=== PATIENT | female | born 1970 | race Caucasian/White ===

== ENCOUNTER 2017-12-08 13:48 | Emergency (ER) | payer SELFPAY ==
[2017-12-08] MEDS ORDERED: ASPIRIN 325 MG TABLET PO ONE (14:27)
--- NOTE | 2017-12-08 14:38 | ER Document Report ---
ED Medical Screen (RME) - General Chief Complaint: Chest Pain Stated Complaint: CHEST PAIN Time Seen by Provider: 12/08/17 14:27 Mode of Arrival: Ambulatory Information source: Patient TRAVEL OUTSIDE OF THE [place] IN LAST 30 DAYS: No - HPI Patient complains to provider of: CP Onset: Other - pt states she has had intermittent SSCP for the past week. She has not taken ASA today - Related Data Allergies/Adverse Reactions: morphine [Morphine] Adverse Reaction (Mild, Verified 02/09/13 22:45) SEVERE HEADACHE Home Medications: Current Home Medications No Home Medications 12/08/17 [History] Past Medical History - Past Medical History Cardiac Medical History: Denies: Hx Heart Attack, Hx Hypertension Pulmonary Medical History: Denies: Hx Asthma Neurological Medical History: Denies: Hx Cerebrovascular Accident, Hx Seizures GI Medical History: Denies: Hx Hepatitis, Hx Hiatal Hernia, Hx Ulcer Musculoskeltal Medical History: Psychiatric Medical History: Reports: Hx Depression Infectious Medical History: Denies: Hx Hepatitis Past Surgical History: Reports: Hx Section, Hx Hysterectomy - 2006, Hx Orthopedic Surgery - Pins in the right foot. Denies: Hx Mastectomy, Hx Open Heart Surgery, Hx Pacemaker - Immunizations Hx Diphtheria, Pertussis, Tetanus Vaccination: No Physical Exam - Vital signs Vitals: Temp Pulse Resp BP Pulse Ox 98.1 F 93 18 131/84 H 100 12/08/17 14:11 12/08/17 14:11 12/08/17 14:11 12/08/17 14:11 12/08/17 14:11 Course - Vital Signs Vital signs: Temp Pulse Resp BP Pulse Ox 98.1 F 93 18 131/84 H 100 12/08/17 14:11 12/08/17 14:11 12/08/17 14:11 12/08/17 14:11 12/08/17 14:11
--- NOTE | 2017-12-08 15:15 | EKG REPORT ---
SEVERITY:- BORDERLINE ECG - SINUS RHYTHM BORDERLINE PROLONGED QT INTERVAL : Confirmed by: Roberto Vasquez MD 08-Dec-2017 15:14:38
[2017-12-08 15:21] LABS: ABSOLUTE LYMPHOCYTES (AUTO) 1.4 10^3/uL (0.5-4.7); ABSOLUTE MONOCYTES (AUTO) 0.5 10^3/uL (0.1-1.4); ABSOLUTE NEUT (AUTO) 3.3 10^3/uL (1.7-8.2); BASOPHILS % (AUTO) 0.7 % (0-2); EOSINOPHILS % (AUTO) 0.1 % (0-6); HEMATOCRIT 41.9 % (36.0-47.0); HEMOGLOBIN 14.5 g/dL (12.0-15.5); LYMPHOCYTES % (AUTO) 27.1 % (13-45); MEAN CORPUSCULAR HEMOGLOBIN 33.3 pg (27.0-33.4); MEAN CORPUSCULAR HGB CONC 34.6 g/dL (32.0-36.0); MEAN CORPUSCULAR VOLUME 96 fl (80-97); PLATELET COUNT 205 10^3/uL (150-450); RED BLOOD COUNT 4.36 10^6/uL (3.72-5.28); RED CELL DISTRIBUTION WIDTH 12.7 % (11.5-14.0); SEGMENTED NEUTROPHILS % (AUTO) 63.1 % (42-78); TOTAL CELLS COUNTED % (AUTO) 100 %; WHITE BLOOD COUNT 5.3 10^3/uL (4.0-10.5)
[2017-12-08 15:33] LABS: ALANINE AMINOTRANSFERASE 40 U/L (9-52); ALBUMIN 4.4 g/dL (3.5-5.0); ALKALINE PHOSPHATASE 74 U/L (38-126); ANION GAP 9 (5-19); ASPARTATE AMINO TRANSFERASE 39 U/L (14-36); BILIRUBIN,DIRECT 0.2 mg/dL (0.0-0.4); BILIRUBIN,TOTAL 0.5 mg/dL (0.2-1.3); BLOOD UREA NITROGEN 8 mg/dL (7-20); CALCIUM 9.3 mg/dL (8.4-10.2); CARBON DIOXIDE 26 mmol/L (22-30); CHLORIDE 105 mmol/L (98-107); CREATINE KINASE 46 U/L (30-135); GLUCOSE 100 mg/dL (75-110); POTASSIUM 4.6 mmol/L (3.6-5.0); SODIUM 139.8 mmol/L (137-145)
[2017-12-08 16:02] LABS: CREATINE KINASE MB 0.43 ng/mL (<4.55); TROPONIN I < 0.012 ng/mL
[2017-12-08] MEDS ORDERED: KETOROLAC TROMETHAMINE INJ/PF 30 MG/1 ML SDV IV ONE (16:49)
--- NOTE | 2017-12-08 17:17 | RADIOLOGY REPORT (SQ) ---
EXAM DESCRIPTION: CHEST PA/LAT COMPLETED DATE/TIME: 12/08/2017 4:57 pm REASON FOR STUDY: cp COMPARISON: None 2012 EXAM PARAMETERS: NUMBER OF VIEWS: two views TECHNIQUE: Digital Frontal and Lateral radiographic views of the chest acquired. RADIATION DOSE: NA LIMITATIONS: none FINDINGS: LUNGS AND PLEURA: No opacities, masses or pneumothorax. No pleural effusion. MEDIASTINUM AND HILAR STRUCTURES: No masses or contour abnormalities. HEART AND VASCULAR STRUCTURES: Heart normal size. No evidence for failure. BONES: No acute findings. HARDWARE: None in the chest. OTHER: No other significant finding. IMPRESSION: NO SIGNIFICANT RADIOGRAPHIC FINDING IN THE CHEST. TECHNICAL DOCUMENTATION: JOB ID: [id number] [employer]- All Rights Reserved
--- NOTE | 2017-12-08 19:27 | ER Document Report ---
ED General - General Chief Complaint: Chest Pain Stated Complaint: CHEST PAIN Time Seen by Provider: 12/08/17 14:27 Mode of Arrival: Ambulatory Information source: Patient TRAVEL OUTSIDE OF THE [place] IN LAST 30 DAYS: No - HPI Patient complains to provider of: Chest pain Onset: Last week Onset/Duration: Gradual Quality of pain: Sharp, Other - Worse with inspiration Similar symptoms previously: No Recently seen / treated by doctor: No Notes: 46-year-old female presents emergency department brought in by her for evaluation. She states that one week ago she had a cold with a cough that has now resolved. She states that she has had a constant unrelenting sharp chest pain to her anterior chest which "feels like a pulled muscle". States it is much worse with inspiration. - Related Data Allergies/Adverse Reactions: morphine [Morphine] Adverse Reaction (Mild, Verified 02/09/13 22:45) SEVERE HEADACHE Past Medical History - General Information source: Patient - Social History Smoking Status: Current Every Day Smoker Frequency of alcohol use: Occasional Drug Abuse: None Lives with: Family Family History: Reviewed & Not Pertinent. denies: CAD, Hyperlipidemia, Hypertension Patient has suicidal ideation: No Patient has homicidal ideation: No - Past Medical History Cardiac Medical History: Reports: None Denies: Hx Heart Attack, Hx Hypertension Pulmonary Medical History: Reports: None Denies: Hx Asthma EENT Medical History: Reports: None Neurological Medical History: Reports: None. Denies: Hx Cerebrovascular Accident, Hx Seizures Endocrine Medical History: Reports: None Renal/ Medical History: Reports: None. Denies: Hx Peritoneal Dialysis Malignancy Medical History: Reports: None GI Medical History: Reports: None. Denies: Hx Hepatitis, Hx Hiatal Hernia, Hx Ulcer Musculoskeltal Medical History: Reports None Skin Medical History: Reports None Psychiatric Medical History: Reports: Hx Depression Infectious Medical History: Reports: None. Denies: Hx Hepatitis Past Surgical History: Reports: Hx Section, Hx Hysterectomy, Hx Orthopedic Surgery - Pins in the right foot. Denies: Hx Mastectomy, Hx Open Heart Surgery, Hx Pacemaker Other: Patient states she has not seen a doctor in 3 years. - Immunizations Hx Diphtheria, Pertussis, Tetanus Vaccination: No History of Influenza Vaccine for 08/2017 - 01/2018 Season: No Review of Systems - Review of Systems Constitutional: Recent illness EENT: No symptoms reported Cardiovascular: See HPI Respiratory: See HPI, Cough, Hurts to breathe. denies: Hemoptysis, Short of breath, Sputum, Stridor, Wheezing Gastrointestinal: No symptoms reported Genitourinary: No symptoms reported Female Genitourinary: No symptoms reported Musculoskeletal: No symptoms reported Skin: No symptoms reported Hematologic/Lymphatic: No symptoms reported Neurological/Psychological: No symptoms reported Physical Exam - Vital signs Vitals: Temp Pulse Resp BP Pulse Ox 98.1 F 93 18 131/84 H 100 12/08/17 14:11 12/08/17 14:11 12/08/17 14:11 12/08/17 14:11 12/08/17 14:11 - Notes Notes: PHYSICAL EXAMINATION: GENERAL: Well-appearing, well-nourished and in no acute distress. HEAD: Atraumatic, normocephalic. EYES: Pupils equal round and reactive to light, extraocular movements intact, conjunctiva are normal. ENT: Nares patent, oropharynx clear without exudates. Moist mucous membranes. NECK: Normal range of motion, supple without lymphadenopathy LUNGS: Breath sounds clear to auscultation bilaterally and equal. No wheezes rales or rhonchi. HEART: Regular rate and rhythm without murmurs ABDOMEN: Soft, nontender, nondistended abdomen. No guarding, no rebound. No masses appreciated. Female : deferred Musculoskeletal: Normal range of motion, no pitting or edema. No cyanosis. NEUROLOGICAL: Cranial nerves grossly intact. Normal speech, normal gait. Normal sensory, motor exams PSYCH: Normal mood, normal affect. SKIN: Warm, Dry, normal turgor, no rashes or lesions noted. Course - Re-evaluation Re-evalutation: 12/08/17 21:14 She states that the Toradol did take the edge off. Review all her results with her. Her was also in the room. I told her I was going to discharge her home on anti-inflammatory medication. She is to follow-up with the primary medical doctor. I also recommended referrals to cardiology and gastroenterology if her pain did not resolve. - Vital Signs Vital signs: Temp Pulse Resp BP Pulse Ox 98.1 F 93 16 135/85 H 100 12/08/17 14:11 12/08/17 14:11 12/08/17 19:01 12/08/17 19:01 12/08/17 19:01 - Laboratory Result Diagrams: 12/08/17 14:54 12/08/17 14:54 Laboratory results interpreted by me: 12/08/17 14:54 AST 39 H 12/08/17 21:15 troponin negative 2 - Diagnostic Test Radiology reviewed: Image reviewed, Reports reviewed Radiology results interpreted by me: 12/08/17 19:25 No acute findings on chest x-ray - EKG Interpretation by Me EKG shows normal: Sinus rhythm - 77 Rate: Normal When compared to previous EKG there are: No significant change Discharge - Discharge Clinical Impression: Chest pain, Pleuritic chest pain, Tobacco abuse counseling Condition: Stable Instructions: Pleurisy ([facility]) Additional Instructions: Return to the emergency department if you have fevers, syncope, worsening symptoms or any other concerns. Prescriptions: Naproxen [Naprosyn] 500 mg PO BID 5 Days #10 tablet Referrals: BETH MEDINA MD [Primary Care Provider] - Follow up as needed
[2017-12-08 21:27] VITALS: BP 125/81
== END 2017-12-08 21:27 | disposition home or self-care (01) ==
LOC: ER 13:48
DX: R07.81 Pleurodynia (principal); R05 Cough; R07.9 Chest pain, unspecified; F17.200 Nicotine dependence, unspecified, uncomplicated; Z88.6 Allergy status to analgesic agent; Z90.710 Acquired absence of both cervix and uterus
CPT/HCPCS: 93005; 99285; 96374; 36415; 82553; 82550; 85025; 80053; 84484; 71046; 93010; J1885

== ENCOUNTER 2018-06-10 12:45 | Emergency (ER) | payer OTHER ==
--- NOTE | 2018-06-10 13:38 | ER Document Report ---
ED Medical Screen (RME) - General Chief Complaint: Palpitations Stated Complaint: SHORTNESS OF BREATH Time Seen by Provider: 06/10/18 13:31 Notes: RAPID MEDICAL EVALUATION DISCLOSURE I have seen this patient as part of a Rapid Medical Evaluation and, if applicable, placed any initially appropriate orders. The patient will be seen and fully evaluated, including a full history and physical exam, by a provider ( in Main ED or Fast Track) when a room becomes available. 47-year-old female PMH anxiety here with complaints of palpitations shortness of breath peripheral tremors ongoing for the past few weeks. She thinks it may be anxiety however she has not had any anxiety for the past few years. Earlier in her life she did have anxiety however it resolved and she no longer took medication for it. She does not have any chest pain or discomfort or tightness. She has tried vitamin D for these symptoms without much improvement. She denies any cocaine or other illicit drug use. Denies any excessive caffeine or energy drink consumption. Denies any new medications or vitamins/supplements. Denies any history of thyroid issues. EXAM CTAB RRR TRAVEL OUTSIDE OF THE [place] IN LAST 30 DAYS: No - Related Data Allergies/Adverse Reactions: morphine [Morphine] Adverse Reaction (Mild, Verified 06/10/18 12:51) SEVERE HEADACHE Past Medical History - Social History Frequency of alcohol use: Occasional - Past Medical History Cardiac Medical History: Denies: Hx Heart Attack, Hx Hypertension Pulmonary Medical History: Denies: Hx Asthma Neurological Medical History: Denies: Hx Cerebrovascular Accident, Hx Seizures Renal/ Medical History: Denies: Hx Peritoneal Dialysis GI Medical History: Denies: Hx Hepatitis, Hx Hiatal Hernia, Hx Ulcer Musculoskeltal Medical History: Psychiatric Medical History: Reports: Hx Depression Infectious Medical History: Denies: Hx Hepatitis Past Surgical History: Reports: Hx Section, Hx Hysterectomy, Hx Orthopedic Surgery - Pins in the right foot. Denies: Hx Mastectomy, Hx Open Heart Surgery, Hx Pacemaker - Immunizations Hx Diphtheria, Pertussis, Tetanus Vaccination: No History of Influenza Vaccine for 08/2017 - 01/2018 Season: No Physical Exam - Vital signs Vitals: Temp Pulse Resp BP Pulse Ox 97.9 F 77 16 135/84 H 100 06/10/18 13:01 06/10/18 13:01 06/10/18 13:01 06/10/18 13:01 06/10/18 13:01 Course - Vital Signs Vital signs: Temp Pulse Resp BP Pulse Ox 97.9 F 77 16 135/84 H 100 06/10/18 13:01 06/10/18 13:01 06/10/18 13:01 06/10/18 13:01 06/10/18 13:01 Doctor's Discharge - Discharge Referrals: BETH MEDINA MD [Primary Care Provider] - Follow up as needed
[2018-06-10 14:09] LABS: ABSOLUTE EOSINOPHILS # (AUTO) 0.1 10^3/uL (0.0-0.6); ABSOLUTE LYMPHOCYTES (AUTO) 0.9 10^3/uL (0.5-4.7); ABSOLUTE MONOCYTES (AUTO) 0.6 10^3/uL (0.1-1.4); ABSOLUTE NEUT (AUTO) 2.5 10^3/uL (1.7-8.2); BASOPHILS % (AUTO) 1.2 % (0-2); EOSINOPHILS % (AUTO) 1.6 % (0-6); HEMATOCRIT 48.8 % (36.0-47.0); HEMOGLOBIN 16.6 g/dL (12.0-15.5); LYMPHOCYTES % (AUTO) 22.2 % (13-45); MEAN CORPUSCULAR HEMOGLOBIN 34.1 pg (27.0-33.4); MEAN CORPUSCULAR HGB CONC 33.9 g/dL (32.0-36.0); MEAN CORPUSCULAR VOLUME 100 fl (80-97); MONOCYTES % (AUTO) 14.2 % (3-13); PLATELET COUNT 215 10^3/uL (150-450); RED BLOOD COUNT 4.86 10^6/uL (3.72-5.28); RED CELL DISTRIBUTION WIDTH 14.4 % (11.5-14.0); SEGMENTED NEUTROPHILS % (AUTO) 60.8 % (42-78); TOTAL CELLS COUNTED % (AUTO) 100 %; WHITE BLOOD COUNT 4.2 10^3/uL (4.0-10.5)
--- NOTE | 2018-06-10 14:29 | RADIOLOGY REPORT (SQ) ---
EXAM DESCRIPTION: CHEST 2 VIEWS COMPLETED DATE/TIME: 06/10/2018 2:07 pm REASON FOR STUDY: SOB palpitations COMPARISON: November 2017 EXAM PARAMETERS: NUMBER OF VIEWS: two views TECHNIQUE: Digital Frontal and Lateral radiographic views of the chest acquired. RADIATION DOSE: NA LIMITATIONS: none FINDINGS: LUNGS AND PLEURA: No opacities, masses or pneumothorax. No pleural effusion. I cannot exc lude a component of obstructive lung disease. MEDIASTINUM AND HILAR STRUCTURES: No masses or contour abnormalities. HEART AND VASCULAR STRUCTURES: Heart normal size. No evidence for failure. BONES: Intramedullary calcifications are identified in the proximal left humerus which were present o n a prior chest and left rib study dated July 2013. Differential possibilities would include a bone infarct or enchondromas. HARDWARE: None in the chest. OTHER: No other significant finding. IMPRESSION: NO ACUTE RADIOGRAPHIC FINDING IN THE CHEST. TECHNICAL DOCUMENTATION: JOB ID: [id number] [employer]- All Rights Reserved Reading location - IP/workstation name: [email or web address]
[2018-06-10 14:36] LABS: ALANINE AMINOTRANSFERASE 34 U/L (9-52); ALBUMIN 4.6 g/dL (3.5-5.0); ALKALINE PHOSPHATASE 73 U/L (38-126); ANION GAP 14 (5-19); ASPARTATE AMINO TRANSFERASE 46 U/L (14-36); BILIRUBIN,DIRECT 0.3 mg/dL (0.0-0.4); BILIRUBIN,TOTAL 1.4 mg/dL (0.2-1.3); BLOOD UREA NITROGEN 5 mg/dL (7-20); CALCIUM 10.1 mg/dL (8.4-10.2); CARBON DIOXIDE 26 mmol/L (22-30); CHLORIDE 105 mmol/L (98-107); GLUCOSE 101 mg/dL (75-110); PHOSPHORUS 3.9 mg/dL (2.5-4.5); POTASSIUM 4.6 mmol/L (3.6-5.0); TOTAL PROTEIN 7.3 g/dL (6.3-8.2)
[2018-06-10 15:04] LABS: APPEARANCE,URINE CLEAR; BILIRUBIN,URINE NEGATIVE (NEGATIVE); COLOR,URINE YELLOW; GLUCOSE, URINE NEGATIVE (NEGATIVE); KETONES,URINE NEGATIVE (NEGATIVE); LEUKOCYTE ESTERASE,URINE NEGATIVE (NEGATIVE); NITRITE,URINE NEGATIVE (NEGATIVE); PROTEIN,URINE NEGATIVE (NEGATIVE); URINE SPECIFIC GRAVITY 1.008
[2018-06-10 15:26] LABS: URINE AMPHETAMINES SCREEN NEGATIVE; URINE BARBITURATES SCREEN NEGATIVE; URINE BENZODIAZEPINES SCREEN NEGATIVE; URINE COCAINE SCREEN NEGATIVE; URINE MARIJUANA (THC) SCREEN NEGATIVE; URINE METHADONE SCREEN NEGATIVE; URINE PHENCYCLIDINE SCREEN NEGATIVE
--- NOTE | 2018-06-10 17:26 | ER Document Report ---
ED General - General Mode of Arrival: Ambulatory Information source: Patient <EMA LOO - Last Filed: 06/10/18 23:56> - General TRAVEL OUTSIDE OF THE [place] IN LAST 30 DAYS: No <GRACY RANKIN - Last Filed: 06/11/18 00:01> - General Chief Complaint: Palpitations Stated Complaint: SHORTNESS OF BREATH Time Seen by Provider: 06/10/18 13:31 Notes: Patient is a 47 year old female presenting to the emergency department complaining of intermittent heart palpitations and shortness of breath onset a few weeks ago. Patient states she would become anxious and feel her heart race at the same time. She further states this would happened intermittently throughout the day. Patient denies chest pain or any energy drink usage for several weeks and further denies any symptoms after drinking them. (EMA LOO) - Related Data Allergies/Adverse Reactions: morphine [Morphine] Adverse Reaction (Mild, Verified 06/10/18 12:51) SEVERE HEADACHE Past Medical History - General Information source: Patient - Social History Smoking Status: Current Every Day Smoker Frequency of alcohol use: Occasional Family History: Reviewed & Not Pertinent <EMA LOO - Last Filed: 06/10/18 23:56> - Social History Smoking Status: Current Every Day Smoker Frequency of alcohol use: Occasional Family History: Reviewed & Not Pertinent. denies: CAD, Hyperlipidemia, Hypertension Patient has suicidal ideation: No Patient has homicidal ideation: No - Past Medical History Cardiac Medical History: Denies: Hx Heart Attack, Hx Hypertension Pulmonary Medical History: Denies: Hx Asthma Neurological Medical History: Denies: Hx Cerebrovascular Accident, Hx Seizures Renal/ Medical History: Denies: Hx Peritoneal Dialysis GI Medical History: Denies: Hx Hepatitis, Hx Hiatal Hernia, Hx Ulcer Musculoskeletal Medical History: Psychiatric Medical History: Reports: Hx Depression Infectious Medical History: Denies: Hx Hepatitis Past Surgical History: Reports: Hx Section, Hx Hysterectomy, Hx Orthopedic Surgery - Pins in the right foot. Denies: Hx Mastectomy, Hx Open Heart Surgery, Hx Pacemaker - Immunizations Hx Diphtheria, Pertussis, Tetanus Vaccination: No <GRACY RANKIN - Last Filed: 06/11/18 00:01> Review of Systems - Review of Systems Constitutional: No symptoms reported EENT: No symptoms reported Cardiovascular: See HPI, Palpitations, Heart racing Respiratory: See HPI, Short of breath Gastrointestinal: No symptoms reported Genitourinary: No symptoms reported Female Genitourinary: No symptoms reported Musculoskeletal: No symptoms reported Skin: No symptoms reported Hematologic/Lymphatic: No symptoms reported Neurological/Psychological: No symptoms reported -: Yes All other systems reviewed and negative <EMA LOO - Last Filed: 06/10/18 23:56> Physical Exam <EMA LOO - Last Filed: 06/10/18 23:56> <GRACY RANKIN - Last Filed: 06/11/18 00:01> - Vital signs Vitals: Temp Pulse Resp BP Pulse Ox 97.9 F 77 16 135/84 H 100 06/10/18 13:01 06/10/18 13:01 06/10/18 13:01 06/10/18 13:01 06/10/18 13:01 - Notes Notes: GENERAL: Alert, interacts well. No acute distress. HEAD: Normocephalic, atraumatic. EYES: Pupils equal, round, and reactive to light. Extraocular movements intact. ENT: Oral mucosa moist, tongue midline. NECK: Full range of motion. Supple. Trachea midline. LUNGS: Clear to auscultation bilaterally, no wheezes, rales, or rhonchi. No respiratory distress. HEART: Regular rate and rhythm. No murmurs, gallops, or rubs. ABDOMEN: Soft, non-tender. Non-distended. Bowel sounds present in all 4 quadrants. EXTREMITIES: Moves all 4 extremities spontaneously. NEUROLOGICAL: Alert and oriented x3. Normal speech. PSYCH: Normal affect, normal mood. SKIN: Warm, dry, normal turgor. No rashes or lesions noted. (EMA LOO) Course - Laboratory Result Diagrams: 06/10/18 13:58 06/10/18 13:58 <CINDAEMA DAHL - Last Filed: 06/10/18 23:56> - Laboratory Result Diagrams: 06/10/18 13:58 06/10/18 13:58 <GRACY RANKIN - Last Filed: 06/11/18 00:01> - Re-evaluation Re-evalutation: 06/10/18 17:26 Patient refuses. CBC unremarkable, CMP unremarkable, TSH normal, urinalysis unremarkable, urine drug screen negative, chest x-ray does not show any acute process that would explain her intermittent tachycardia though there are some chronic findings, EKG is nonischemic and does not have any signs of Brugada syndrome. Discussed with patient that today I do not see any specific causes for her palpitations and anxiety, recommend that she follow-up with cardiology in the next 24-48 hours to have a Holter monitor placed to see if we can capture any of these episodes of tachycardia and palpitations. Patient is in agreement with this plan. Patient is discharged home. (GRACY RANKIN) - Vital Signs Vital signs: Temp Pulse Resp BP Pulse Ox 97.8 F 64 18 120/85 100 06/10/18 17:35 06/10/18 17:35 06/10/18 17:35 06/10/18 17:35 06/10/18 17:35 - Laboratory Laboratory results interpreted by me: 06/10/18 06/10/18 06/10/18 13:58 13:58 14:48 Hgb 16.6 H Hct 48.8 H MCV 100 H MCH 34.1 H RDW 14.4 H Monocytes % 14.2 H BUN 5 L Creatinine 0.48 L Total Bilirubin 1.4 H AST 46 H Urine Urobilinogen 2.0 H - EKG Interpretation by Me Additional EKG results interpreted by me: 06/10/18 17:27 EKG shows sinus tachycardia at a rate of 102, normal axis, normal intervals, no ST segment elevations or depressions, no T-wave inversions per my interpretation. (GRACY RANKIN) Discharge <EMA LOO - Last Filed: 06/10/18 23:56> <GRACY RANKIN - Last Filed: 06/11/18 00:01> - Discharge Clinical Impression: Palpitations Condition: Stable Disposition: HOME, SELF-CARE Additional Instructions: Palpitations (Irregular/Rapid Heartrate) Irregular or rapid heartbeat is called "palpitation." To diagnose the cause of palpitation, we have to "catch it in the act" with an EKG. Sinus Tachycardia: This is a rapid (but NORMAL) rhythm that can be due to fever, pain, anxiety, lack of sleep, over-exertion, or drugs. Cold medications, caffeine, and diet pills are particularly likely to cause tachycardia. Usually , all that's required is rest, reassurance, and avoiding caffeine, alcohol, nicotine, and unnecessary medicines. Paroxysmal Atrial Tachycardia (PAT): This abnormally rapid heartbeat is caused by a "short circuit" in the electrical system of the heart. It is not dangerous, unless other heart disease is present. These attacks of PAT may occur occasionally for years. Medication is available for treatment. Paroxysmal Atrial Fibrillation or Atrial Flutter: This is irregular electrical activity in the upper heart chamber. These abnormal rhythms often occur with valve disease or in hearts damaged by hardening of the arteries. These rhythms usually require further testing, for example a cardiac echo. Premature Beats: Extra beats occur more commonly after caffeine, nicotine , alcohol, cold pills, diet pills. Emotional stress or fatigue also provoke them. Extra beats are only dangerous when heart disease is present. They usually need no treatment. If they're frequent, or if evidence of heart disease develops, medication can be given to suppress them. If we were unable to "catch" the palpitations on EKG, you should try to get an EKG immediately if the symptoms begin again. Contact the physician at once if you develop persistent lightheadedness, shortness of breath, chest pain , or swelling of the ankles. Please follow-up with a interior decorator paperhanging, in this case Dr. Hatfield, to have a Holter monitor placed. This will monitor your heart to see exactly what is happening during these episodes. Forms: Return to Work Referrals: BETH MEDINA MD [Primary Care Provider] - Follow up as needed DEYSI HATFIELD MD [ACTIVE STAFF] - Follow up tomorrow Scribe Attestation: 06/11/18 00:01 I personally performed the services described in the documentation, reviewed and edited the documentation which was dictated to the scribe in my presence, and it accurately records my words and actions. (GRACY RANKIN) Scribe Documentation - Scribe Written by Lan:: Lan Rosado, 06/10/2018 17:33 acting as scribe for :: Zahira <EMA LOO - Last Filed: 06/10/18 23:56>
[2018-06-10 17:38] VITALS: BP 120/85
--- NOTE | 2018-06-10 22:14 | EKG REPORT ---
SEVERITY:- BORDERLINE ECG - SINUS TACHYCARDIA CONSIDER ANTERIOR INFARCT : Confirmed by: Cherise Sutherland 10-Jun-2018 22:12:25
== END 2018-06-10 17:39 | disposition home or self-care (01) ==
LOC: ER 12:45
DX: R00.2 Palpitations (principal); R06.02 Shortness of breath; F17.200 Nicotine dependence, unspecified, uncomplicated; Z88.6 Allergy status to analgesic agent; Z90.710 Acquired absence of both cervix and uterus
CPT/HCPCS: 36415; 71046; 80053; 80307; 81001; 83735; 84100; 84443; 85025; 93005; 93010; 99285

== ENCOUNTER 2018-11-20 07:05 | Emergency (ER) | payer OTHER ==
[2018-11-20] MEDS ORDERED: LIDOCAINE 5% (700 MG) TRANSDERMAL ADH..PATCH TP ONE (07:32)
[2018-11-20] MEDS ORDERED: ACETAMINOPHEN 325 MG TABLET PO ONE (07:41)
[2018-11-20] MEDS ORDERED: KETOROLAC TROMETHAMINE 60 MG/2 ML SDV IM ONE (07:41)
--- NOTE | 2018-11-20 07:44 | ER Document Report ---
ED General - General Chief Complaint: Painful Cough Stated Complaint: COUGH/RIB PAIN Time Seen by Provider: 11/20/18 07:27 TRAVEL OUTSIDE OF THE [place] IN LAST 30 DAYS: No - HPI Patient complains to provider of: Painful cough Notes: Patient coming in pack a day smoker for evaluation of right lower rib pain cough ongoing since . Patient states he had a coughing episode he felt a pop. Patient states continues to be painful whenever she is moving around sitting up or coughing. Patient denies any exacerbation of pain with food denies any fevers chills vomiting diarrhea. Patient states since being sick she has decreased her smoking. Patient states scant yellow sputum. Patient otherwise resting comfortably upon my evaluation. - Related Data Allergies/Adverse Reactions: morphine [Morphine] Adverse Reaction (Mild, Verified 11/20/18 07:05) SEVERE HEADACHE Past Medical History - Social History Smoking Status: Unknown if Ever Smoked Family History: Reviewed & Not Pertinent. denies: CAD, Hyperlipidemia, Hypertension - Past Medical History Cardiac Medical History: Denies: Hx Heart Attack, Hx Hypertension Pulmonary Medical History: Denies: Hx Asthma Neurological Medical History: Denies: Hx Cerebrovascular Accident, Hx Seizures Renal/ Medical History: Denies: Hx Peritoneal Dialysis GI Medical History: Denies: Hx Hepatitis, Hx Hiatal Hernia, Hx Ulcer Musculoskeletal Medical History: Psychiatric Medical History: Reports: Hx Depression Infectious Medical History: Denies: Hx Hepatitis Past Surgical History: Reports: Hx Section, Hx Hysterectomy, Hx Orthopedic Surgery - Pins in the right foot. Denies: Hx Mastectomy, Hx Open Heart Surgery, Hx Pacemaker - Immunizations Hx Diphtheria, Pertussis, Tetanus Vaccination: No Review of Systems - Review of Systems Constitutional: No symptoms reported EENT: No symptoms reported Cardiovascular: No symptoms reported Respiratory: Cough, Short of breath Gastrointestinal: No symptoms reported Genitourinary: No symptoms reported Female Genitourinary: No symptoms reported Musculoskeletal: No symptoms reported Skin: No symptoms reported Hematologic/Lymphatic: No symptoms reported Neurological/Psychological: No symptoms reported -: Yes All other systems reviewed and negative Physical Exam - Vital signs Vitals: Temp Pulse Resp BP Pulse Ox 98.2 F 75 20 129/72 H 100 11/20/18 07:09 11/20/18 07:09 11/20/18 07:09 11/20/18 07:09 11/20/18 07:09 Interpretation: Normal - General General appearance: Appears well, Alert - HEENT Head: Normocephalic, Atraumatic Eyes: Normal Pupils: PERRL - Respiratory Respiratory status: No respiratory distress Chest status: Nontender Breath sounds: Normal Chest palpation: Normal - Cardiovascular Rhythm: Regular Heart sounds: Normal auscultation Murmur: No - Abdominal Inspection: Normal Distension: No distension Bowel sounds: Normal Tenderness: Tender - Tenderness palpation of the right lower ribs just adjacent to the sternum at the insertion point of the abdominal muscles tenderness is also reproduced when patient performs a sit up in bed Organomegaly: No organomegaly - Back Back: Normal, Nontender - Extremities General upper extremity: Normal inspection, Nontender, Normal color, Normal ROM, Normal temperature General lower extremity: Normal inspection, Nontender, Normal color, Normal ROM, Normal temperature, Normal weight bearing. No: Otf's sign - Neurological Neuro grossly intact: Yes Cognition: Normal Orientation: AAOx4 Gaetano Coma Scale Eye Opening: Spontaneous Gaetano Coma Scale Verbal: Oriented Gaetano Coma Scale Motor: Obeys Commands Gaetano Coma Scale Total: 15 Speech: Normal Motor strength normal: LUE, RUE, LLE, RLE Sensory: Normal - Psychological Associated symptoms: Normal affect, Normal mood - Skin Skin Temperature: Warm Skin Moisture: Dry Skin Color: Normal Course - Re-evaluation Re-evalutation: 11/20/18 14:50 Patient coming in for chest wall pain abdominal wall pain patient's chest x-ray is negative examination is consistent with abdominal strain from coughing. Patient was encouraged to use lidocaine patches Tylenol Motrin for pain control. Patient also educated about smoking cessation. Patient states understanding was discharged home. - Vital Signs Vital signs: Temp Pulse Resp BP Pulse Ox 98.2 F 59 L 14 119/75 98 11/20/18 07:09 11/20/18 10:27 11/20/18 10:27 11/20/18 10:27 11/20/18 10:27 Discharge - Discharge Clinical Impression: Bronchitis Abdominal wall strain Qualifiers: Encounter type: initial encounter Qualified Code(s): S39.011A - Strain of muscle, fascia and tendon of abdomen, initial encounter Condition: Good Disposition: HOME, SELF-CARE Instructions: Bronchitis ([facility]), Ice Massage ([facility]), Muscle Strain ([facility]), Warm Packs ([facility]) Additional Instructions: X-ray today does not show any acute pathology your examination is consistent with an abdominal wall strain more likely from your episodes of coughing. More likely have an underlying viral bronchitis please continue to not smoke use the inhaler that we gave you here in ER 2 puffs every 4 hours as needed for shortness of breath take Tylenol Motrin for your pain control if he received pain relief with the lidocaine patches he may inquire about obtaining these [id number] ask her local pharmacist. Prescriptions: Ibuprofen [Motrin 600 mg Tablet] 600 mg PO Q8HP PRN #21 tablet PRN Reason: Referrals: BETH MEDNIA MD [Primary Care Provider] - Follow up in 3-5 days
--- NOTE | 2018-11-20 08:40 | RADIOLOGY REPORT (SQ) ---
EXAM DESCRIPTION: CHEST 2 VIEWS COMPLETED DATE/TIME: 11/20/2018 7:50 am REASON FOR STUDY: cough right lower rib pain COMPARISON: None. EXAM PARAMETERS: NUMBER OF VIEWS: two views TECHNIQUE: Digital Frontal and Lateral radiographic views of the chest acquired. RADIATION DOSE: NA LIMITATIONS: none FINDINGS: LUNGS AND PLEURA: No opacities, masses or pneumothorax. No pleural effusion. MEDIASTINUM AND HILAR STRUCTURES: No masses or contour abnormalities. HEART AND VASCULAR STRUCTURES: Heart normal size. No evidence for failure. BONES: No acute findings. HARDWARE: None in the chest. OTHER: No other significant finding. IMPRESSION: NO ACUTE RADIOGRAPHIC FINDING IN THE CHEST. TECHNICAL DOCUMENTATION: JOB ID: [id number] [employer]- All Rights Reserved Reading location - IP/workstation name: [email or web address]
[2018-11-20] MEDS ORDERED: ALBUTEROL SULFATE HFA (90 MCG/PUFF) 8 GM MDI (1 MDI/ER DISP) IH ONE (10:00)
[2018-11-20 10:30] VITALS: BP 119/75
== END 2018-11-20 10:27 | disposition home or self-care (01) ==
LOC: ER 07:05
DX: J40 Bronchitis, not specified as acute or chronic (principal); S39.011A Strain of muscle, fascia and tendon of abdomen, initial encounter; X58.XXXA Exposure to other specified factors, initial encounter; R07.89 Other chest pain; R07.81 Pleurodynia; R06.02 Shortness of breath
CPT/HCPCS: 99283; 96372; 71046; J1885; J3490

== ENCOUNTER 2019-05-24 08:44 | Emergency (ER) | payer BC, OTHER ==
[2019-05-24] MEDS ORDERED: ASPIRIN 81 MG TABLET, CHEWABLE PO ONE (09:08)
[2019-05-24] MEDS ORDERED: IBUPROFEN 800 MG TABLET PO ONE (09:09)
--- NOTE | 2019-05-24 09:12 | ER Document Report ---
ED Medical Screen (RME) - General Chief Complaint: Pain All Over Stated Complaint: BACK PAIN Time Seen by Provider: 05/24/19 08:58 Primary Care Provider: BETH MEDINA MD [Primary Care Provider] - Follow up as needed Mode of Arrival: Ambulatory Information source: Patient Notes: Patient presents to the emergency department with complaints of back pain for the past 2 weeks. Reports lower back pain neck pain right elbow and right hip pain. Reports she has been evaluated by her primary care provider 3 times in the past month for a history of losing weight over the past 2 years. She reports she went from 165 pounds to 118 pounds. She is also scheduled for colonoscopy in May. She reports she has had ultrasounds done of her gallbladder and her liver. She is also had lab work done. Patient's been treated for anxiety. She has also been treated for diarrhea. She reports she vomited one time this week denies fever denies pain with void. Denies trauma. Reports she has taken acetaminophen and Motrin for this pain with no relief. Reports her mom had bone cancer. Patient also adds that she had chest pain on and Saturday of this week which made her break out into cold sweat. No chest pain at this time. I have greeted and performed a rapid initial assessment of this patient. A comprehensive ED assessment and evaluation of the patient, analysis of test results and completion of the medical decision making process will be conducted by additional ED providers. Dictation of this chart was performed using voice recognition software; theref ore, there may be some unintended grammatical errors. TRAVEL OUTSIDE OF THE [place] IN LAST 30 DAYS: No - Related Data Allergies/Adverse Reactions: morphine [Morphine] Adverse Reaction (Mild, Verified 05/24/19 08:50) SEVERE HEADACHE Past Medical History - Past Medical History Cardiac Medical History: Denies: Hx Heart Attack, Hx Hypertension Pulmonary Medical History: Denies: Hx Asthma Neurological Medical History: Denies: Hx Cerebrovascular Accident, Hx Seizures Renal/ Medical History: Denies: Hx Peritoneal Dialysis GI Medical History: Denies: Hx Hepatitis, Hx Hiatal Hernia, Hx Ulcer Musculoskeltal Medical History: Psychiatric Medical History: Reports: Hx Depression Infectious Medical History: Denies: Hx Hepatitis Past Surgical History: Reports: Hx Section, Hx Hysterectomy, Hx Orthopedic Surgery - Pins in the right foot. Denies: Hx Mastectomy, Hx Open Heart Surgery, Hx Pacemaker - Immunizations Hx Diphtheria, Pertussis, Tetanus Vaccination: No History of Influenza Vaccine for 08/2017 - 01/2018 Season: No Physical Exam - Vital signs Vitals: Temp Pulse Resp BP Pulse Ox 98.1 F 111 H 22 H 127/82 H 99 05/24/19 08:47 05/24/19 08:47 05/24/19 08:47 05/24/19 08:47 05/24/19 08:47 Course - Vital Signs Vital signs: Temp Pulse Resp BP Pulse Ox 98.1 F 111 H 22 H 127/82 H 99 05/24/19 08:47 05/24/19 08:47 05/24/19 08:47 05/24/19 08:47 05/24/19 08:47 Doctor's Discharge - Discharge Referrals: BETH MEDINA MD [Primary Care Provider] - Follow up as needed
[2019-05-24 09:50] LABS: ABSOLUTE EOSINOPHILS # (AUTO) 0.1 10^3/uL (0.0-0.6); ABSOLUTE LYMPHOCYTES (AUTO) 1.1 10^3/uL (0.5-4.7); ABSOLUTE MONOCYTES (AUTO) 0.8 10^3/uL (0.1-1.4); ABSOLUTE NEUT (AUTO) 4.7 10^3/uL (1.7-8.2); BASOPHILS % (AUTO) 0.4 % (0-2); EOSINOPHILS % (AUTO) 1.9 % (0-6); HEMATOCRIT 43.7 % (36.0-47.0); HEMOGLOBIN 14.8 g/dL (12.0-15.5); LYMPHOCYTES % (AUTO) 16.2 % (13-45); MEAN CORPUSCULAR HEMOGLOBIN 33.7 pg (27.0-33.4); MEAN CORPUSCULAR VOLUME 99 fl (80-97); MONOCYTES % (AUTO) 12.3 % (3-13); PLATELET COUNT 213 10^3/uL (150-450); RED CELL DISTRIBUTION WIDTH 12.4 % (11.5-14.0); SEGMENTED NEUTROPHILS % (AUTO) 69.2 % (42-78); TOTAL CELLS COUNTED % (AUTO) 100 %; WHITE BLOOD COUNT 6.8 10^3/uL (4.0-10.5)
[2019-05-24 10:05] LABS: ALANINE AMINOTRANSFERASE 35 U/L (9-52); ALBUMIN 4.7 g/dL (3.5-5.0); ALKALINE PHOSPHATASE 72 U/L (38-126); ANION GAP 6 (5-19); ASPARTATE AMINO TRANSFERASE 43 U/L (14-36); BILIRUBIN,DIRECT 0.2 mg/dL (0.0-0.4); BILIRUBIN,TOTAL 1.2 mg/dL (0.2-1.3); BLOOD UREA NITROGEN 10 mg/dL (7-20); CALCIUM 9.1 mg/dL (8.4-10.2); CARBON DIOXIDE 28 mmol/L (22-30); CHLORIDE 103 mmol/L (98-107); CREATINE KINASE 48 U/L (30-135); GLUCOSE 84 mg/dL (75-110); LIPASE 95.5 U/L (23-300); SODIUM 137.2 mmol/L (137-145); TOTAL PROTEIN 7.5 g/dL (6.3-8.2)
[2019-05-24 10:13] LABS: APPEARANCE,URINE CLEAR; BILIRUBIN,URINE NEGATIVE (NEGATIVE); COLOR,URINE YELLOW; GLUCOSE, URINE NEGATIVE (NEGATIVE); KETONES,URINE NEGATIVE (NEGATIVE); LEUKOCYTE ESTERASE,URINE NEGATIVE (NEGATIVE); NITRITE,URINE NEGATIVE (NEGATIVE); PROTEIN,URINE NEGATIVE (NEGATIVE); URINE SPECIFIC GRAVITY 1.015; UROBILINOGEN,URINE NEGATIVE mg/dL (<2.0)
--- NOTE | 2019-05-24 10:16 | RADIOLOGY REPORT (SQ) ---
EXAM DESCRIPTION: CHEST 2 VIEWS COMPLETED DATE/TIME: 05/24/2019 10:00 am REASON FOR STUDY: cp COMPARISON: 11/20/2018. EXAM PARAMETERS: NUMBER OF VIEWS: two views TECHNIQUE: Digital Frontal and Lateral radiographic views of the chest acquired. RADIATION DOSE: NA LIMITATIONS: none FINDINGS: LUNGS AND PLEURA: No opacities, masses or pneumothorax. No pleural effusion. MEDIASTINUM AND HILAR STRUCTURES: No masses or contour abnormalities. HEART AND VASCULAR STRUCTURES: Heart normal size. No evidence for failure. BONES: No acute findings. HARDWARE: None in the chest. OTHER: No other significant finding. IMPRESSION: NO ACUTE RADIOGRAPHIC FINDING IN THE CHEST. TECHNICAL DOCUMENTATION: JOB ID: [id number] [employer]- All Rights Reserved Reading location - IP/workstation name: [email or web address]
--- NOTE | 2019-05-24 10:16 | RADIOLOGY REPORT (SQ) ---
EXAM DESCRIPTION: ELBOW RIGHT OVER 2 VIEWS COMPLETED DATE/TIME: 05/24/2019 10:00 am REASON FOR STUDY: pain, ttp COMPARISON: None. NUMBER OF VIEWS: Four view. TECHNIQUE: AP, lateral, and both oblique radiographic images acquired of the right elbow. LIMITATIONS: None. FINDINGS: MINERALIZATION: Normal. BONES: No acute fracture or dislocation. No worrisome bone lesions. No significant osteophytes. JOINT: No effusions. SOFT TISSUES: No soft tissue swelling. No foreign body. OTHER: No other significant finding. IMPRESSION: NEGATIVE STUDY OF THE RIGHT ELBOW. NO EXPLANATION FOR PAIN. TECHNICAL DOCUMENTATION: JOB ID: [id number] [employer]- All Rights Reserved Reading location - IP/workstation name: [email or web address]
[2019-05-24] MEDS ORDERED: IBUPROFEN 600 MG TABLET PO ONE (13:44)
--- NOTE | 2019-05-24 13:50 | ER Document Report ---
ED General - General Chief Complaint: Pain All Over Stated Complaint: BACK PAIN Time Seen by Provider: 05/24/19 08:58 Primary Care Provider: BETH MEDINA MD [ACTIVE STAFF] - Follow up as needed Mode of Arrival: Ambulatory TRAVEL OUTSIDE OF THE [place] IN LAST 30 DAYS: No - HPI Notes: Patient is a 48-year-old female presents emergency department for evaluation of multiple complaints. She has low back pain. She has diarrhea. She has weakness. She complains of pain in her right elbow. She has had diarrhea for several months. She is being worked up as an outpatient, but she is called off work multiple times, so she presents to the ED for further evaluation as her pain is worsened. She has had some intermittent chest pain as well. She states occasionally she feels short of breath. She cannot really describe any of her pain to me other than to say it hurts. It is not necessarily exertional. Pain seems to come on at all times, waxes and wanes in intensity. - Related Data Allergies/Adverse Reactions: morphine [Morphine] Adverse Reaction (Mild, Verified 05/24/19 08:50) SEVERE HEADACHE Past Medical History - General Information source: Patient - Social History Smoking Status: Former Smoker Family History: Reviewed & Not Pertinent. denies: CAD, Hyperlipidemia, Hypertension Patient has suicidal ideation: No Patient has homicidal ideation: No - Past Medical History Cardiac Medical History: Denies: Hx Heart Attack, Hx Hypertension Pulmonary Medical History: Denies: Hx Asthma Neurological Medical History: Denies: Hx Cerebrovascular Accident, Hx Seizures Renal/ Medical History: Denies: Hx Peritoneal Dialysis GI Medical History: Denies: Hx Hepatitis, Hx Hiatal Hernia, Hx Ulcer Musculoskeletal Medical History: Psychiatric Medical History: Reports: Hx Depression Infectious Medical History: Denies: Hx Hepatitis Past Surgical History: Reports: Hx Section, Hx Hysterectomy, Hx Or thopedic Surgery - Pins in the right foot. Denies: Hx Mastectomy, Hx Open Heart Surgery, Hx Pacemaker - Immunizations Hx Diphtheria, Pertussis, Tetanus Vaccination: No Review of Systems - Review of Systems Constitutional: See HPI EENT: No symptoms reported Cardiovascular: See HPI Respiratory: No symptoms reported Gastrointestinal: See HPI Genitourinary: No symptoms reported Musculoskeletal: See HPI Skin: No symptoms reported Neurological/Psychological: No symptoms reported Physical Exam - Vital signs Vitals: Temp Pulse Resp BP Pulse Ox 98.1 F 111 H 22 H 127/82 H 99 05/24/19 08:47 05/24/19 08:47 05/24/19 08:47 05/24/19 08:47 05/24/19 08:47 - Notes Notes: Vital signs reviewed, please refer to chart. Head is normocephalic, atraumatic. Pupils equal round, reactive to light. Neck is supple without meningismus. Heart is regular rate and rhythm. Lungs are clear to auscultation bilaterally. Abdomen is soft, nontender, normoactive bowel sounds throughout. Donation of the spine yields no midline tenderness or step-off. No paraspinal musculature tenderness is appreciated. Negative straight leg raise bilaterally. Patellar and Achilles reflexes are symmetrical. Skin is warm and dry. Extremities without cyanosis, clubbing. Posterior calves are nontender. Peripheral pulses are equal. Skin is warm and dry. Patient is awake, alert, neurological exam is nonfocal. Patient with a very flat and mildly depressed affect. Course - Re-evaluation Re-evalutation: 05/24/19 13:47 Patient presents emergency department for evaluation. She complains of multiple somatic complaints, as well as frequent diarrhea. I did add a TSH. Her laboratory investigations and imaging here entirely unremarkable. I do not have a clear etiology of her symptoms, but they have been ongoing for several months. She is on explained weight loss. She certainly needs further evaluation. She voiced understanding to this. I will send her home with a prescription for ibuprofen her back pain. She is to return to the ED with worsening or new concerning symptoms of any sort. - Vital Signs Vital signs: Temp Pulse Resp BP Pulse Ox 98.1 F 111 H 22 H 127/82 H 99 05/24/19 08:47 05/24/19 08:47 05/24/19 08:47 05/24/19 08:47 05/24/19 08:47 - Laboratory Result Diagrams: 05/24/19 09:20 05/24/19 09:20 Laboratory results interpreted by me: 05/24/19 05/24/19 05/24/19 09:20 09:20 09:20 MCV 99 H MCH 33.7 H Creatinine 0.51 L AST 43 H Urine Ascorbic Acid 40 H - Diagnostic Test Radiology reviewed: Reports reviewed Radiology results interpreted by me: 05/24/19 13:48 Chest X-Ray 05/24/19 09:08 IMPRESSION: NO ACUTE RADIOGRAPHIC FINDING IN THE CHEST. Elbow X-Ray 05/24/19 09:13 IMPRESSION: NEGATIVE STUDY OF THE RIGHT ELBOW. NO EXPLANATION FOR PAIN. - EKG Interpretation by Me Additional EKG results interpreted by me: 05/24/19 13:48 Sinus mechanism with a rate of 89 bpm. Normal axis, normal intervals, no acute ST changes concerning for ischemia or infarction. This is unchanged compared to prior study of June 10, 2018. Discharge - Discharge Clinical Impression: Right elbow pain Diarrhea Qualifiers: Diarrhea type: unspecified type Qualified Code(s): R19.7 - Diarrhea, unspecified Chest pain Qualifiers: Chest pain type: unspecified Qualified Code(s): R07.9 - Chest pain, unspecified Condition: Stable Disposition: HOME, SELF-CARE Instructions: Arm Pain, Nonspecific ([facility]), Low Back Pain ([facility]), Chest Pain of Unclear Cause ([facility]) Additional Instructions: No clear cause was found for your symptoms today. Take ibuprofen as needed for pain. Follow-up with your primary care physician in 1 to 2 weeks. Return to the ED with worsening or new concerning symptoms of any sort. Referrals: BETH MEDINA MD [ACTIVE STAFF] - Follow up as needed
[2019-05-24 14:07] VITALS: BP 132/74
--- NOTE | 2019-05-24 22:27 | EKG REPORT ---
SEVERITY:- NORMAL ECG - SINUS RHYTHM : Confirmed by: Cherise Sutherland 24-May-2019 22:26:26
== END 2019-05-24 14:06 | disposition home or self-care (01) ==
LOC: ER 08:44
DX: M54.5 Low back pain (principal); M25.521 Pain in right elbow; R19.7 Diarrhea, unspecified; R53.1 Weakness; R07.9 Chest pain, unspecified; R06.02 Shortness of breath; Z87.891 Personal history of nicotine dependence
CPT/HCPCS: 36415; 71046; 80053; 81001; 82550; 83690; 84443; 84484; 85025; 93005; 93010; 99284

== ENCOUNTER → 2019-09-17 | Outpatient (CLI) | payer BC ==
--- NOTE | 2019-09-17 13:18 | RADIOLOGY REPORT (SQ) ---
EXAM DESCRIPTION: NM GASTRIC EMPTYING STUDY COMPLETED DATE/TIME: 09/17/2019 12:50 pm REASON FOR STUDY: N/V (R11.2) R11.2 NAUSEA WITH VOMITING, UNSPECIFIED COMPARISON: None. RADIONUCLIDE AND DOSE: 2 millicuries Tc-99m Sulfur Colloid. Egg salad sandwich The route of agent administration: Oral. TECHNIQUE: 1 minute serial static imaging performed at time of meal, 1 hour, 2 hours, 3 hours, and 4 hours as needed. Once stomach reaches 90% emptying, the test is complete. Image intensity values pl otted with respect to time with linear regression algorithm. LIMITATIONS: None. FINDINGS: Patient was observed for 4 hours. Immediate post meal serves as baseline. Gastric emptying at 30 minutes was 36.6%. Gastric emptying at 60 minutes was 59.9% Gastric emptying at 90 minutes was 74.6%. Gastric emptying at 120 minutes was 83.9%. Gastric emptying at 240 minutes was 97.4% Normal values: 60 minutes: 30-90% retained. If less than 30%, abnormally rapid emptying. If greater than 90%, delaye d gastric emptying. 120 minutes: <60% retained. If greater than 60%, delayed gastric emptying. 240 minutes: <10% retained. If greater than 10%, delayed gastric emptying. IMPRESSION: NORMAL GASTRIC EMPTYING. TECHNICAL DOCUMENTATION: JOB ID: [id number] [employer]- All Rights Reserved rev-04/11 Reading location - IP/workstation name: [email or web address]
== END ==
LOC: RAD 08:00
PROVIDERS: ATTEND Internal Medicine Gastroenterology
DX: R11.2 Nausea with vomiting, unspecified (principal)
CPT/HCPCS: 78264; A9541

== ENCOUNTER 2019-11-22 10:11 | Emergency (ER) | payer BC ==
[2019-11-22] MEDS ORDERED: IBUPROFEN 800 MG TABLET PO ONE (10:29)
--- NOTE | 2019-11-22 10:32 | ER Document Report ---
HPI - HPI Patient complains to provider of: Right rib pain Time Seen by Provider: 11/22/19 10:24 Onset: Other - 4 weeks Onset/Duration: Persistent Severity: Moderate Pain Level: 3 Context: 48-year-old female with history of pleurisy presents emergency department with complaints of right rib pain when she takes a deep breath for the past 4 weeks. Denies fever vomiting diarrhea cough. Also complains of a bad headache. Has been taking Tylenol without relief of symptoms. Patient denies trauma to the side. Denies recent exercise. Associated Symptoms: Headache Exacerbated by: Deep breathing Relieved by: Denies Similar symptoms previously: No Recently seen / treated by doctor: No - REPRODUCTIVE Reproductive: DENIES: : Past Medical History - General Information source: Patient - Social History Smoking Status: Current Every Day Smoker Cigarette use (# per day): Yes Chew tobacco use (# tins/day): No Frequency of alcohol use: None Drug Abuse: None Occupation: none Family History: Reviewed & Not Pertinent. denies: CAD, Hyperlipidemia, Hypertension Patient has suicidal ideation: No Patient has homicidal ideation: No - Past Medical History Cardiac Medical History: Denies: Hx Heart Attack, Hx Hypertension Pulmonary Medical History: Denies: Hx Asthma Neurological Medical History: Denies: Hx Cerebrovascular Accident, Hx Seizures Renal/ Medical History: Denies: Hx Peritoneal Dialysis GI Medical History: Denies: Hx Hepatitis, Hx Hiatal Hernia, Hx Ulcer Musculoskeletal Medical History: Psychiatric Medical History: Reports: Hx Anxiety, Hx Depression Infectious Medical History: Denies: Hx Hepatitis Past Surgical History: Reports: Hx Section, Hx Hysterectomy, Hx Orthopedic Surgery - Pins in the right foot. Denies: Hx Mastectomy, Hx Open Heart Surgery, Hx Pacemaker - Immunizations Hx Diphtheria, Pertussis, Tetanus Vaccination: No Vertical Provider Document - CONSTITUTIONAL Agree With Documented VS: Yes Exam Limitations: No Limitations General Appearance: WD/WN, No Apparent Distress - INFECTION CONTROL TRAVEL OUTSIDE OF THE [place] IN LAST 30 DAYS: No - HEENT HEENT: Atraumatic, Normal ENT Exam, Normocephalic, PERRLA. negative: Conjuctival Injection, Pharyngeal Erythema, Tympanic Membrane Red - NECK Neck: Supple. negative: Lymphadenopathy-Left, Lymphadenopathy-Right - RESPIRATORY Respiratory: Breath Sounds Normal, No Respiratory Distress, Chest Non-Tender - no ttp to ribs. negative: Rales, Rhonchi, Wheezing - CARDIOVASCULAR Cardiovascular: Regular Rate, Regular Rhythm - GI/ABDOMEN Gastrointestinal: Abdomen Soft, Abdomen Non-Tender - BACK Back: Normal Inspection - MUSCULOSKELETAL/EXTREMETIES Musculoskeletal/Extremeties: MAEW, FROM, Non-Tender - NEURO Level of Consciousness: Awake, Alert, Appropriate Motor/Sensory: No Motor Deficit - DERM Integumentary: Warm, Dry, No Rash Course - Re-evaluation Re-evalutation: 11/22/19 10:31 48-year-old female with complaints of rib pain for the past 4 weeks when she takes a deep breath with history of pleurisy. Patient does smoke. Reports she is been able to smoke without problems. Chest x-ray and Motrin ordered for headache. 11/22/19 11:24 Chest x-ray negative for pneumothorax no rib injury noted. Patient was instructed on the importance of quit smoking. Instructed on possible COPD. She was instructed to follow-up with her primary care return for worsening symptoms. She verbalized understanding to all instruction. Ribs w/Chest X-Ray 11/22/19 10:29 IMPRESSION: No pneumothorax. Probable COPD. No rib pathology. - Vital Signs Vital signs: Temp Pulse Resp BP Pulse Ox 97.5 F 119 H 17 146/90 H 100 11/22/19 10:15 11/22/19 10:15 11/22/19 10:15 11/22/19 10:15 11/22/19 10:15 - Diagnostic Test Radiology reviewed: Reports reviewed Discharge - Discharge Clinical Impression: Rib pain on right side Condition: Stable Disposition: HOME, SELF-CARE Additional Instructions: *You have been evaluated for a right rib pain Your x-ray was negative for any acute fracture or injury to your ribs, possible COPD was noted. *Take ibuprofen as indicated *Quit smoking Cough and deep breathe at least once an hour *Increase fluids *Monitor your temperature, take Tylenol as indicated *Follow up with a primary care provider within 1 week for recheck *Return to ED for increasing fever, cough, worsening condition, changes, needs Monitor your blood pressure. Your blood pressure was elevated today. This may be because you were anxious, in pain or because you need medication. It is important to follow up with your primary care provider for full evaluation. Forms: Smoking Cessation Education, Elevated Blood Pressure Referrals: YUSRA FARAH MD [ACTIVE STAFF] - Follow up as needed
--- NOTE | 2019-11-22 11:20 | RADIOLOGY REPORT (SQ) ---
EXAM DESCRIPTION: RIBS RIGHT W/PA CHEST COMPLETED DATE/TIME: 11/22/2019 10:43 am REASON FOR STUDY: pain with deep breath,hx pleurisy COMPARISON: None. TECHNIQUE: Frontal view of the chest and additional views of the right ribs acquired. NUMBER OF VIEWS: Three view. LIMITATIONS: None. FINDINGS: FRONTAL CXR: Mildly hyperinflated but clear. No pneumothorax. RIBS: No displaced rib fractures. No lytic or blastic bony lesions. OTHER: No other significant finding. IMPRESSION: No pneumothorax. Probable COPD. No rib pathology. COMMENT: SITE OF TRAUMA/COMPLAINT MARKED/STAMP COMPLETED: NO. TECHNICAL DOCUMENTATION: JOB ID: [id number] [employer]- All Rights Reserved Reading location - IP/workstation name: [email or web address]
[2019-11-22 11:32] VITALS: BP 140/88
== END 2019-11-22 11:40 | disposition home or self-care (01) ==
LOC: ER 10:11
DX: R07.81 Pleurodynia (principal); R51 Headache; F17.210 Nicotine dependence, cigarettes, uncomplicated; Z90.710 Acquired absence of both cervix and uterus
CPT/HCPCS: 99283

== ENCOUNTER 2020-04-25 12:11 | Emergency (ER) | payer BC ==
[2020-04-25] MEDS ORDERED: NORMAL SALINE 1000 ML 1,000 ML IV ONE (12:45)
[2020-04-25] MEDS ORDERED: ONDANSETRON HCL INJ/PF 4 MG/2 ML SDV IV ONE (12:45)
[2020-04-25 13:13] VITALS: BP 130/82
--- NOTE | 2020-04-25 13:22 | ER Document Report ---
Entered by IZABEL RIVERA SCRIBE 04/25/20 1252 Acting as scribe for:MUSTAPHA MILLER MD ED General - General Chief Complaint: Anxiety Stated Complaint: ANXIETY Time Seen by Provider: 04/25/20 12:24 Primary Care Provider: AKIN FORDE FNP-C [Primary Care Provider] - Follow up as needed Mode of Arrival: Ambulatory Information source: Patient Notes: This 49 year old female patient presents to the emergency department today with complaints of multiple symptoms which all seemed to began after noticing a possible insect bite to her left forearm. Patient reports that at 11:00 PM two nights ago she was sitting outside and noticed a burning sensation to her left forearm but never saw anything bite her. Patient reports that she has since experienced headaches, nausea, vomiting, abdominal cramping, lethargy, sweats, chills, and generalized weakness. TRAVEL OUTSIDE OF THE [place] IN LAST 30 DAYS: No - Related Data Allergies/Adverse Reactions: fluconazole [From Diflucan] Allergy (Verified 11/22/19 10:28) morphine [Morphine] Adverse Reaction (Mild, Verified 11/22/19 10:24) SEVERE HEADACHE Past Medical History - General Information source: Patient - Social History Smoking Status: Current Every Day Smoker Cigarette use (# per day): Yes - 1ppd Frequency of alcohol use: Rare Drug Abuse: None Lives with: Family Family History: Reviewed & Not Pertinent - Past Medical History Cardiac Medical History: Pulmonary Medical History: Musculoskeletal Medical History: Psychiatric Medical History: Reports: Hx Anxiety, Hx Depression Past Surgical History: Reports: Hx Section, Hx Hysterectomy, Hx Orthopedic Surgery - Pins in the right foot - Immunizations Hx Diphtheria, Pertussis, Tetanus Vaccination: No Review of Systems - Review of Systems Constitutional: See HPI, Chills, Diaphoresis EENT: No symptoms reported Cardiovascular: No symptoms reported Respiratory: No symptoms reported Gastrointestinal: See HPI, Nausea, Vomiting Genitourinary: No symptoms reported Female Genitourinary: Last menstrual period - Postmenopausal Musculoskeletal: No symptoms reported Skin: See HPI, Lesions Hematologic/Lymphatic: No symptoms reported Neurological/Psychological: No symptoms reported -: Yes All other systems reviewed and negative Physical Exam - Vital signs Vitals: Temp Pulse Resp BP Pulse Ox 98.3 F 73 18 130/82 H 99 04/25/20 13:03 04/25/20 13:03 04/25/20 13:03 04/25/20 13:03 04/25/20 13:03 - Notes Notes: Physical Exam: General: Alert, appears well. HEENT: Normocephalic. Atraumatic. PERRL. Extraocular movements intact. Oropharynx clear. Neck: Supple. Non-tender. Respiratory: No respiratory distress. Faint expiratory wheezing on the right. Cardiovascular: Regular rate and rhythm. Abdominal: Upper abdominal tenderness with palpation. No distension. Normal Bowel Sounds. Back: No gross abnormalities. Extremities: Moves all four extremities. Upper extremities: Normal inspection. Normal ROM. Lower extremities: 3 small bumps to left volar forearm with surrounding erythema. The area surrounding these bumps is a little swollen with slight induration and erythema consistent with an insect bite. Neurological: Normal cognition. AAOx4. Normal speech. Psychological: Normal affect. Normal Mood. Skin: Warm. Dry. Normal color. Course - Re-evaluation Re-evalutation: 04/25/20 14:16 Patient reports her nauseousness is much better at this time. - Vital Signs Vital signs: Temp Pulse Resp BP Pulse Ox 98.3 F 73 18 130/82 H 99 04/25/20 13:03 04/25/20 13:03 04/25/20 13:03 04/25/20 13:03 04/25/20 13:03 - Laboratory Result Diagrams: 04/25/20 13:10 04/25/20 13:10 Laboratory results interpreted by me: 04/25/20 04/25/20 13:10 13:10 MCH 33.9 H Sodium 135.6 L Discharge - Discharge Clinical Impression: Insect bite of arm, left Qualifiers: Encounter type: initial encounter Qualified Code(s): S40.862A - Insect bite (nonvenomous) of left upper arm, initial encounter; W57.XXXA - Bitten or stung by nonvenomous insect and other nonvenomous arthropods, initial encounter Nausea and vomiting Qualifiers: Vomiting type: unspecified Vomiting Intractability: non-intractable Qualified Code(s): R11.2 - Nausea with vomiting, unspecified Condition: Stable Disposition: HOME, SELF-CARE Additional Instructions: Insect/Arthropod bite: You have probably been bitten by an insect or spider. These bites can cause two types of swelling: an initial swelling due to insect saliva or injected poison, and a late reaction due to your body's allergic reaction. This initial local reaction may be uncomfortable but is not dangerous. Often there's an itchy "hive" at the bite location. This is treated with antihistamines, cold compresses, and resting the affected body part. The later reaction often develops about the second day. The entire area becomes very swollen, red, itchy, and tender. This is an allergic reaction. Your body is attacking the leftover insect saliva or venom. This type of allergy is unpleasant, but not dangerous. We treat this swelling with cortisone-type medicine. Sometimes we use antibiotics if we're worried about infection. Antihistamines help with the itch. If you develop a fever, chills, a red streak, or swollen glands in the area of the bite, infection may be starting. Return at once. Take the medications as prescribed for nauseousness. Drink cool clear liquids today. If the bite area begins to itch, you can apply Benadryl cream. Follow-up with your primary care provider if not improving. RETURN TO THE EMERGENCY ROOM IF ANY NEW OR WORSENING SYMPTOMS. Prescriptions: Ondansetron [Zofran Odt 4 mg Tablet] 1 - 2 tab PO Q4H PRN #12 tab.rapdis PRN Reason: Forms: Return to Work Referrals: AKIN FORDE, TUBE REPAIRER-C [Primary Care Provider] - Follow up as needed I personally performed the services described in the documentation, reviewed and edited the documentation which was dictated to the scribe in my presence, and it accurately records my words and actions.
[2020-04-25 13:31] LABS: ABSOLUTE EOSINOPHILS # (AUTO) 0.2 10^3/uL (0.0-0.6); ABSOLUTE LYMPHOCYTES (AUTO) 1.3 10^3/uL (0.5-4.7); ABSOLUTE MONOCYTES (AUTO) 0.5 10^3/uL (0.1-1.4); ABSOLUTE NEUT (AUTO) 2.3 10^3/uL (1.7-8.2); BASOPHILS % (AUTO) 0.8 % (0-2); HEMOGLOBIN 15.3 g/dL (12.0-15.5); LYMPHOCYTES % (AUTO) 29.4 % (13-45); MEAN CORPUSCULAR HEMOGLOBIN 33.9 pg (27.0-33.4); MEAN CORPUSCULAR HGB CONC 34.8 g/dL (32.0-36.0); MEAN CORPUSCULAR VOLUME 97 fl (80-97); PLATELET COUNT 226 10^3/uL (150-450); RED BLOOD COUNT 4.52 10^6/uL (3.72-5.28); RED CELL DISTRIBUTION WIDTH 13.7 % (11.5-14.0); SEGMENTED NEUTROPHILS % (AUTO) 54.8 % (42-78); TOTAL CELLS COUNTED % (AUTO) 100 %; WHITE BLOOD COUNT 4.3 10^3/uL (4.0-10.5)
[2020-04-25 13:34] LABS: APPEARANCE,URINE CLEAR; BILIRUBIN,URINE NEGATIVE (NEGATIVE); COLOR,URINE STRAW; GLUCOSE, URINE NEGATIVE (NEGATIVE); KETONES,URINE NEGATIVE (NEGATIVE); LEUKOCYTE ESTERASE,URINE NEGATIVE (NEGATIVE); NITRITE,URINE NEGATIVE (NEGATIVE); PROTEIN,URINE NEGATIVE (NEGATIVE); URINE SPECIFIC GRAVITY 1.002; UROBILINOGEN,URINE NEGATIVE mg/dL (<2.0)
[2020-04-25 13:54] LABS: ALBUMIN 4.7 g/dL (3.5-5.0); ALKALINE PHOSPHATASE 80 U/L (38-126); ANION GAP 8 (5-19); ASPARTATE AMINO TRANSFERASE 36 U/L (14-36); BILIRUBIN,TOTAL 0.8 mg/dL (0.2-1.3); BLOOD UREA NITROGEN 8 mg/dL (7-20); CALCIUM 9.8 mg/dL (8.4-10.2); CARBON DIOXIDE 25 mmol/L (22-30); CHLORIDE 103 mmol/L (98-107); CREATINE KINASE 73 U/L (30-135); GLUCOSE 94 mg/dL (75-110); POTASSIUM 4.1 mmol/L (3.6-5.0); TOTAL PROTEIN 7.7 g/dL (6.3-8.2)
== END 2020-04-25 14:31 | disposition home or self-care (01) ==
LOC: ER 12:11
DX: S40.862A Insect bite (nonvenomous) of left upper arm, initial encounter (principal); W57.XXXA Bitten or stung by nonvenomous insect and other nonvenomous arthropods, initial encounter; R11.2 Nausea with vomiting, unspecified; F41.9 Anxiety disorder, unspecified; F17.210 Nicotine dependence, cigarettes, uncomplicated; Z88.6 Allergy status to analgesic agent; Z90.710 Acquired absence of both cervix and uterus
CPT/HCPCS: 99282; 96361; 96374; 36415; 82550; 85025; 80053; 81001; J2405; J7030

== ENCOUNTER → 2020-07-21 | Outpatient (CLI) | payer BC, OTHER ==
--- NOTE | 2020-07-21 09:52 | WOMENS IMAGING REPORT ---
EXAM DESCRIPTION: BILAT SCREENING MAMMO W/CAD IMAGES COMPLETED DATE/TIME: 07/21/2020 8:36 am REASON FOR STUDY: Z12.31 ENCNTR SCREEN MAMMOGRAM FOR MALIGNANT NEOPLASM OF BREAST Z12.31 ENCNTR SCR EEN MAMMOGRAM FOR MALIGNANT NEOPLASM OF VIOLET COMPARISON: 2008, 2009 EXAM PARAMETERS: Standard craniocaudal and mediolateral oblique views of each breast recorded using digital acquisition. Read with the assistance of CAD. .[facility] - [employer] Receiving Clerk Version 9.2 LIMITATIONS: None. FINDINGS: No suspicious masses, suspicious calcifications or architectural distortion. No areas of c oncern. IMPRESSION: NEGATIVE MAMMOGRAM. BIRADS 1 BREAST DENSITY: b. There are scattered areas of fibroglandular density. BIRAD: ASSESSMENT: 1 NEGATIVE RECOMMENDATION: ROUTINE SCREENING COMMENT: The patient has been notified of the results by letter per MQSA requirements. Additional no tification policies are in place for contacting patient with suspicious or incomplete findings. Quality ID #[id number]: The [employer] recommends an annual screening mammogram for women aged 40 years or over. This facility utilizes a reminder system to ensure that all patients receive reminder letters, and/or direct phone calls for appointments. This includes reminders for routine scr eening mammograms, diagnostic mammograms, or other Breast Imaging Interventions when appropriate. Th is patient will be placed in the appropriate reminder system. TECHNICAL DOCUMENTATION: FINDING NUMBER: (1) ASSESSMENT: (1) JOB ID: [id number] 2010 [employer]- All Rights Reserved Reading location - IP/workstation name: [email or web address]
== END ==
LOC: WI 08:10
PROVIDERS: ATTEND Nurse Practitioner Family
DX: Z12.31 Encounter for screening mammogram for malignant neoplasm of breast (principal)
CPT/HCPCS: 77067

== ENCOUNTER 2020-08-15 15:01 | Emergency (ER) | payer BC ==
[2020-08-15 15:26] VITALS: BP 121/71
--- NOTE | 2020-08-15 15:29 | ER Document Report ---
ED Medical Screen (RME) - General Stated Complaint: CHEST PAIN,NAUSEA,VOMITNG Time Seen by Provider: 08/15/20 15:21 Primary Care Provider: AKIN FORDE FNP-C [Primary Care Provider] - Follow up as needed Mode of Arrival: Ambulatory Information source: Patient Notes: HPI; 49-year-old female presents to the emergency room complaining of chest pressure midsternal, dizziness, shortness of breath, nausea vomiting and diarrhea for the past 3 to 4 days. States she is running a fever of 101 over the weekend. Denies any recent travel denies any COVID-19 exposure. PE: Alert and oriented x3. Lungs: Clear to auscultation without rales, rhonchi, wheezes. Heart: Regular rate rhythm without murmurs, rubs, gallops. I have greeted and performed a rapid initial assessment of this patient. A comprehensive ED assessment and evaluation of the patient, analysis of test results and completion of the medical decision making process will be conducted by additional ED providers. I have specifically instructed the patient or family members with the patient to immediately return to any nursing staff should anything change in the patient's condition or with their chief complaint. TRAVEL OUTSIDE OF THE [place] IN LAST 30 DAYS: No - Related Data Allergies/Adverse Reactions: fluconazole [From Diflucan] Allergy (Verified 11/22/19 10:28) morphine [Morphine] Adverse Reaction (Mild, Verified 11/22/19 10:24) SEVERE HEADACHE Past Medical History - Past Medical History Cardiac Medical History: Denies: Hx Heart Attack, Hx Hypertension Pulmonary Medical History: Denies: Hx Asthma Neurological Medical History: Denies: Hx Cerebrovascular Accident, Hx Seizures Renal/ Medical History: Denies: Hx Peritoneal Dialysis GI Medical History: Denies: Hx Hepatitis, Hx Hiatal Hernia, Hx Ulcer Musculoskeltal Medical History: Psychiatric Medical History: Reports: Hx Anxiety, Hx Depression Infectious Medical History: Denies: Hx Hepatitis Past Surgical History: Reports: Hx Section, Hx Hysterectomy, Hx Orthopedic Surgery - Pins in the right foot. Denies: Hx Mastectomy, Hx Open Heart Surgery, Hx Pacemaker - Immunizations Hx Diphtheria, Pertussis, Tetanus Vaccination: No Physical Exam - Vital signs Vitals: Temp Pulse Resp BP Pulse Ox 98.8 F 63 18 121/71 100 08/15/20 15:25 08/15/20 15:25 08/15/20 15:25 08/15/20 15:25 08/15/20 15:25 Course - Vital Signs Vital signs: Temp Pulse Resp BP Pulse Ox 98.8 F 63 18 121/71 100 08/15/20 15:25 08/15/20 15:25 08/15/20 15:25 08/15/20 15:25 08/15/20 15:25 Doctor's Discharge - Discharge Referrals: AKIN FORDE, INTERNET MANAGER-C [Primary Care Provider] - Follow up as needed
--- NOTE | 2020-08-16 08:30 | EKG REPORT ---
SEVERITY:- NORMAL ECG - SINUS RHYTHM : Confirmed by: Chikis Izquierdo MD 16-Aug-2020 08:29:54
== END 2020-08-15 19:00 | disposition left against medical advice (07) ==
LOC: ER 15:01
DX: R07.89 Other chest pain (principal); R42 Dizziness and giddiness; R06.02 Shortness of breath; R19.7 Diarrhea, unspecified; R11.2 Nausea with vomiting, unspecified; R50.9 Fever, unspecified; Z88.3 Allergy status to other anti-infective agents; Z53.20 Procedure and treatment not carried out because of patient's decision for unspecified reasons
CPT/HCPCS: 93005; 93010; 99281